=== PATIENT | female | born 2000 | race Caucasian/White ===

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

== ENCOUNTER 2019-05-06 10:33 | Inpatient (IN) | payer MEDICAID ==
[~2019-05-06] VITALS: Ht 157.5 cm; Wt 89.8 kg
[~2019-05-06 10:33] MED LIST changes: +ATOM40CA9 PO; +BACI120O TP; -CIP250 PO; +FLUO-191 PO; -GUAN1 PO; +GUAN1TAB22 PO; +OLAN10TA22 PO; -RISP2 PO; -SERT100T12 PO
[2019-05-06] MEDS ORDERED: DIVA500T52 PO (10:49)
[2019-05-06] MEDS ORDERED: MIRT-92 PO (10:49)
[2019-05-06] MEDS ORDERED: ZIPR40CA2 PO (10:49)
[2019-05-06 12:28] LABS: BASOPHILS % (AUTO) 0.6 % (0.0-2.0); HEMOGLOBIN 13.6 g/dL (12.0-16.0); LYMPHOCYTES # (AUTO) 2.1 K/uL (1.0-4.8); LYMPHOCYTES % (AUTO) 22.5 % (22.0-44.0); MEAN CORPUSCULAR HEMOGLOBIN 27.1 pg (26.0-34.0); MEAN CORPUSCULAR HGB CONC 33.3 G/dL (31.0-37.0); MEAN CORPUSCULAR VOLUME 81 fL (80-100); MONOCYTES # (AUTO) 0.5 K/uL (0.1-1.0); MONOCYTES % (AUTO) 5.8 % (2.0-9.0); NEUTROPHILS # (AUTO) 6.5 K/uL (1.8-7.7); NEUTROPHILS % (AUTO) 70.1 % (40.0-70.0); PLATELET COUNT (AUTO) 284 K/uL (150-450); RED BLOOD CELL COUNT(AUTO) 5.04 MIL/uL (4.00-5.20)
[2019-05-06 12:38] LABS: ANION GAP 9 mmol/L (8-16); CALCIUM, TOTAL 9.3 mg/dL (8.8-10.5); CARBON DIOXIDE 28 mmol/L (22-29); CHLORIDE 106 mmol/L (98-107); CREATININE 0.93 mg/dL (0.60-1.30); GLOMERULAR FILTR. RATE CALC > 60 mL/min (>60); GLUCOSE,RANDOM 82 mg/dL (70-110); POTASSIUM 4.3 mmol/L (3.5-5.1); SODIUM SERUM 143 mmol/L (136-145); UREA NITROGEN, BLOOD 8 mg/dL (7-18)
[2019-05-06 12:40] LABS: AMPHET/METH SCREEN,URINE NEGATIVE (NEGATIVE); BARBITURATE SCREEN, URINE NEGATIVE (NEGATIVE); BENZODIAZEPINES SCREEN,URINE NEGATIVE (NEGATIVE); CANNABINOID SCREEN,URINE NEGATIVE (NEGATIVE); COCAINE SCREEN,URINE NEGATIVE (NEGATIVE); METHADONE SCREEN, URINE NEGATIVE (NEGATIVE); OPIATE SCREEN,URINE NEGATIVE (NEGATIVE)
[2019-05-06 12:41] LABS: PHENCYCLIDINE SCREEN,URINE NEGATIVE (NEGATIVE)
[2019-05-06 12:44] LABS: ALANINE AMINOTRANSFERASE 19 U/L (12-78); ALBUMIN 3.9 g/dL (3.4-5.0); ALKALINE PHOSPHATASE 88 U/L (46-116); ASPARTATE AMINOTRANSFERASE 9 U/L (15-37); BILIRUBIN,TOTAL 0.2 mg/dL (0.1-1.0); TOTAL PROTEIN, SERUM 7.6 g/dL (6.4-8.2); VALPROIC ACID 49 mcg/mL (50-100)
[2019-05-06 15:56] LABS: APPEARANCE,URINE CLOUDY (CLEAR); BILIRUBIN,URINE NEGATIVE (NEGATIVE); GLUCOSE, URINE (UA) NEGATIVE (NEGATIVE); KETONES,URINE NEGATIVE (NEGATIVE); LEUKOCYTE ESTERASE ,URINE SMALL (NEGATIVE); NITRATE,URINE NEGATIVE (NEGATIVE); OCCULT BLOOD,URINE LARGE (NEGATIVE); PH,URINE 5.5 (5.0-8.0); PROTEIN,URINE TRACE (NEGATIVE); UROBILINOGEN,URINE 0.2 mg/dL (<=1.0)
[2019-05-06 16:06] LABS: BACTERIA,URINE Moderate /HPF (None Seen); RBC,URINE 0-2 /HPF (0-2); SQUAMOUS EPITHELIAL CELL,UR Moderate /LPF (None Seen)
[2019-05-06 18:43] VITALS: BP 111/70
[2019-05-06] MEDS ORDERED: LOPERAMIDE HCL 2 MG CAPSULE PO PRN (19:00)
[2019-05-06] MEDS ORDERED: MAGNESIUM HYDROXIDE SUSPENSION 30 ML UDCUP PO PRN (19:00)
[2019-05-06] MEDS ORDERED: PETROLATUM,WHITE 28 GM JELLY TP PRN (19:00)
[2019-05-06] MEDS ORDERED: GuaiFENesin/D-METHORPHAN [SUGAR-FREE] 200-20MG/10 ML SYRUP UDCUP PO PRN (19:00)
[2019-05-06] MEDS ORDERED: NICOTINE 14 MG/24 HOUR PATCH TD PRN (19:00)
[2019-05-06] MEDS ORDERED: DOCUSATE SODIUM 100 MG CAPSULE PO PRN (19:00)
[2019-05-06] MEDS ORDERED: CloNIDine HCL 0.1 MG TABLET PO PRN (19:00)
[2019-05-06] MEDS ORDERED: ONDANSETRON HCL 4 MG TABLET PO PRN (19:00)
[2019-05-06] MEDS ORDERED: ALBUTEROL SULFATE HFA 90 MCG/PUFF 8 GM INHALER IH PRN (19:00)
[2019-05-06 19:11] VITALS: BP 111/70
[2019-05-06] MEDS: LORazepam 2 MG TABLET PO PRN (20:28)
[2019-05-07 00:30] VITALS: BP 111/71
[2019-05-07] MEDS: LORazepam 2 MG TABLET PO PRN ×2 (00:31→21:34)
[2019-05-07 09:16] VITALS: BP 118/73
[2019-05-07] MEDS: GuanFACINE HCL 1 MG TABLET PO SCH (09:33)
[2019-05-07] MEDS: GABAPENTIN 300 MG CAPSULE PO SCH ×2 (12:04→17:02)
[2019-05-07 12:49] VITALS: BP 124/84
[2019-05-07] MEDS: IBUPROFEN 400 MG TABLET PO PRN (12:49)
[2019-05-07 17:00] VITALS: BP 100/55
[2019-05-07] MEDS: ZIPRASIDONE HCL 40 MG CAPSULE PO SCH (17:02)
[2019-05-07] MEDS: HALOPERIDOL 5 MG TABLET PO PRN (21:34)
[2019-05-08] MEDS: ZIPRASIDONE HCL 40 MG CAPSULE PO SCH ×2 (07:08→16:34)
[2019-05-08 08:41] VITALS: BP 119/67
[2019-05-08 09:06] LABS: FREE T4 (FREE THYROXINE) 0.74 ng/dL (0.76-1.46); THYROID STIMULATING HORMONE 2.49 uIU/mL (0.36-3.74)
[2019-05-08] MEDS: GABAPENTIN 300 MG CAPSULE PO SCH ×2 (09:23→16:34)
[2019-05-08] MEDS: GuanFACINE HCL 1 MG TABLET PO SCH (09:23)
[2019-05-08 16:49] VITALS: BP 108/69
[2019-05-08] MEDS: ZOLPIDEM TARTRATE 10 MG TABLET PO PRN (22:09)
[2019-05-09 01:13] VITALS: BP 110/82
[2019-05-09] MEDS: ACETAMINOPHEN 325 MG TABLET PO PRN (04:16)
[2019-05-09] MEDS: IBUPROFEN 400 MG TABLET PO PRN ×2 (05:13→19:01)
[2019-05-09] MEDS: ZIPRASIDONE HCL 40 MG CAPSULE PO SCH ×2 (06:31→17:22)
[2019-05-09 09:18] VITALS: BP 103/63
[2019-05-09] MEDS: GABAPENTIN 300 MG CAPSULE PO SCH ×2 (10:26→17:22)
[2019-05-09] MEDS: GuanFACINE HCL 1 MG TABLET PO SCH (10:26)
[2019-05-09 17:34] VITALS: BP 110/73
[2019-05-09 18:50] VITALS: BP 110/73
[2019-05-10] MEDS: ZIPRASIDONE HCL 40 MG CAPSULE PO SCH ×2 (06:44→16:22)
[2019-05-10 09:02] VITALS: BP 115/75
[2019-05-10] MEDS: GABAPENTIN 300 MG CAPSULE PO SCH ×2 (09:03→16:22)
[2019-05-10] MEDS: GuanFACINE HCL 1 MG TABLET PO SCH (09:03)
[2019-05-10] MEDS: MAG HYDROX/AL HYDROX/SIMETH ES 30 ML SUSPENSION UDCUP PO PRN (11:07)
[2019-05-10] MEDS: LORazepam 2 MG TABLET PO PRN (11:33)
[2019-05-10 16:00] VITALS: BP 95/79
[2019-05-10] MEDS: ZOLPIDEM TARTRATE 10 MG TABLET PO PRN (21:23)
[2019-05-11 00:21] VITALS: BP 120/89
[2019-05-11 04:48] LABS: APPEARANCE,URINE CLEAR (CLEAR); BILIRUBIN,URINE NEGATIVE (NEGATIVE); GLUCOSE, URINE (UA) NEGATIVE (NEGATIVE); KETONES,URINE NEGATIVE (NEGATIVE); LEUKOCYTE ESTERASE ,URINE NEGATIVE (NEGATIVE); NITRATE,URINE NEGATIVE (NEGATIVE); OCCULT BLOOD,URINE NEGATIVE (NEGATIVE); PH,URINE 6.5 (5.0-8.0); PROTEIN,URINE NEGATIVE (NEGATIVE); UROBILINOGEN,URINE 0.2 mg/dL (<=1.0)
[2019-05-11 05:03] LABS: AMPHET/METH SCREEN,URINE NEGATIVE (NEGATIVE); BARBITURATE SCREEN, URINE NEGATIVE (NEGATIVE); BENZODIAZEPINES SCREEN,URINE NEGATIVE (NEGATIVE); CANNABINOID SCREEN,URINE NEGATIVE (NEGATIVE); COCAINE SCREEN,URINE NEGATIVE (NEGATIVE); METHADONE SCREEN, URINE NEGATIVE (NEGATIVE); OPIATE SCREEN,URINE NEGATIVE (NEGATIVE)
[2019-05-11 05:08] LABS: PHENCYCLIDINE SCREEN,URINE NEGATIVE (NEGATIVE)
[2019-05-11] MEDS: ZIPRASIDONE HCL 40 MG CAPSULE PO SCH ×2 (06:52→16:34)
[2019-05-11 08:55] VITALS: BP 100/71
[2019-05-11] MEDS: GABAPENTIN 300 MG CAPSULE PO SCH ×2 (09:00→16:35)
[2019-05-11] MEDS: GuanFACINE HCL 1 MG TABLET PO SCH (09:00)
[2019-05-11 12:28] VITALS: BP 112/72
[2019-05-11] MEDS: IBUPROFEN 400 MG TABLET PO PRN (12:28)
[2019-05-11 16:44] VITALS: BP 114/70
[2019-05-11] MEDS: HALOPERIDOL 5 MG TABLET PO PRN (23:42)
[2019-05-12] MEDS: ZOLPIDEM TARTRATE 10 MG TABLET PO PRN ×2 (00:05→22:14)
[2019-05-12 06:01] VITALS: BP 102/65
[2019-05-12] MEDS: IBUPROFEN 400 MG TABLET PO PRN (06:34)
[2019-05-12] MEDS: ZIPRASIDONE HCL 40 MG CAPSULE PO SCH ×2 (06:50→17:30)
[2019-05-12 08:48] VITALS: BP 117/80
[2019-05-12] MEDS: GuanFACINE HCL 1 MG TABLET PO SCH (08:56)
[2019-05-12] MEDS: GABAPENTIN 300 MG CAPSULE PO SCH ×2 (08:56→17:30)
[2019-05-12 16:55] VITALS: BP 104/58
[2019-05-12 19:09] VITALS: BP 104/58
[2019-05-12] MEDS: ACETAMINOPHEN 325 MG TABLET PO PRN (19:09)
[2019-05-13] MEDS: ZIPRASIDONE HCL 40 MG CAPSULE PO SCH ×2 (06:44→17:37)
[2019-05-13] MEDS: GuanFACINE HCL 1 MG TABLET PO SCH (08:32)
[2019-05-13] MEDS: GABAPENTIN 300 MG CAPSULE PO SCH ×2 (08:32→16:47)
[2019-05-13 08:44] VITALS: BP 124/86
[2019-05-13] MEDS: OMEGA-3/DHA/EPA/FISH OIL 1,000 MG CAPSULE PO SCH (10:33)
[2019-05-13 16:30] VITALS: BP 104/60
[2019-05-13] MEDS: IBUPROFEN 400 MG TABLET PO PRN (16:48)
[2019-05-13 22:30] VITALS: BP 111/69
[2019-05-13] MEDS: ACETAMINOPHEN 325 MG TABLET PO PRN (22:30)
[2019-05-14 00:30] VITALS: BP 117/73
[2019-05-14] MEDS: ZIPRASIDONE HCL 40 MG CAPSULE PO SCH ×2 (06:43→16:15)
[2019-05-14 09:40] VITALS: BP 124/77
[2019-05-14] MEDS: GuanFACINE HCL 1 MG TABLET PO SCH (10:25)
[2019-05-14] MEDS: OMEGA-3/DHA/EPA/FISH OIL 1,000 MG CAPSULE PO SCH (10:28)
[2019-05-14] MEDS: GABAPENTIN 300 MG CAPSULE PO SCH ×2 (10:29→16:15)
[2019-05-14] MEDS: MAG HYDROX/AL HYDROX/SIMETH ES 30 ML SUSPENSION UDCUP PO PRN (15:34)
[2019-05-14 17:32] VITALS: BP 112/59
[2019-05-15] MEDS: MAG HYDROX/AL HYDROX/SIMETH ES 30 ML SUSPENSION UDCUP PO PRN (03:00)
[2019-05-15] MEDS: ZIPRASIDONE HCL 40 MG CAPSULE PO SCH ×2 (06:40→17:37)
[2019-05-15 08:30] VITALS: BP 109/59
[2019-05-15] MEDS: OMEGA-3/DHA/EPA/FISH OIL 1,000 MG CAPSULE PO SCH (08:41)
[2019-05-15] MEDS: GABAPENTIN 300 MG CAPSULE PO SCH ×2 (08:42→17:37)
[2019-05-15] MEDS: GuanFACINE HCL 1 MG TABLET PO SCH (08:43)
[2019-05-15] MEDS: HALOPERIDOL 5 MG TABLET PO PRN (12:40)
[2019-05-15] MEDS: LORazepam 2 MG TABLET PO PRN (12:40)
[2019-05-15 16:00] VITALS: BP 91/60
[2019-05-16 00:19] VITALS: BP 108/66
[2019-05-16] MEDS: ZOLPIDEM TARTRATE 10 MG TABLET PO PRN (00:21)
[2019-05-16] MEDS: ZIPRASIDONE HCL 40 MG CAPSULE PO SCH ×2 (07:02→17:34)
[2019-05-16] MEDS: GuanFACINE HCL 1 MG TABLET PO SCH (08:30)
[2019-05-16] MEDS: OMEGA-3/DHA/EPA/FISH OIL 1,000 MG CAPSULE PO SCH (08:30)
[2019-05-16] MEDS: GABAPENTIN 300 MG CAPSULE PO SCH ×2 (08:30→17:04)
[2019-05-16 10:35] VITALS: BP 118/65
[2019-05-16 17:23] VITALS: BP 82/63
[2019-05-16 18:27] VITALS: BP 97/68
[2019-05-16] MEDS: ACETAMINOPHEN 325 MG TABLET PO PRN (18:27)
[2019-05-17 00:02] VITALS: BP 112/66
[2019-05-17] MEDS: LORazepam 2 MG TABLET PO PRN ×2 (00:05→21:59)
[2019-05-17] MEDS: ZIPRASIDONE HCL 40 MG CAPSULE PO SCH ×2 (06:48→16:34)
[2019-05-17] MEDS: OMEGA-3/DHA/EPA/FISH OIL 1,000 MG CAPSULE PO SCH (10:03)
[2019-05-17] MEDS: GuanFACINE HCL 1 MG TABLET PO SCH (10:04)
[2019-05-17] MEDS: GABAPENTIN 300 MG CAPSULE PO SCH ×2 (10:04→16:34)
[2019-05-17 12:50] VITALS: BP 108/71
[2019-05-17 17:29] VITALS: BP 103/68
[2019-05-18 00:24] VITALS: BP 101/69
[2019-05-18] MEDS: IBUPROFEN 400 MG TABLET PO PRN (01:00)
[2019-05-18] MEDS: ZOLPIDEM TARTRATE 10 MG TABLET PO PRN (02:09)
[2019-05-18] MEDS: ZIPRASIDONE HCL 40 MG CAPSULE PO SCH ×2 (07:02→16:29)
[2019-05-18 08:00] VITALS: BP 101/64
[2019-05-18] MEDS: OMEGA-3/DHA/EPA/FISH OIL 1,000 MG CAPSULE PO SCH (09:04)
[2019-05-18] MEDS: GuanFACINE HCL 1 MG TABLET PO SCH (09:04)
[2019-05-18] MEDS: GABAPENTIN 300 MG CAPSULE PO SCH ×2 (09:04→16:29)
[2019-05-18] MEDS: LORazepam 2 MG TABLET PO PRN (17:50)
[2019-05-18 19:48] VITALS: BP 107/66
[2019-05-19] MEDS: LORazepam 2 MG TABLET PO PRN ×2 (01:31→18:02)
[2019-05-19] MEDS: ZOLPIDEM TARTRATE 10 MG TABLET PO PRN (01:31)
[2019-05-19 02:37] VITALS: BP 119/73
[2019-05-19] MEDS: ZIPRASIDONE HCL 40 MG CAPSULE PO SCH ×2 (06:56→16:48)
[2019-05-19 09:14] VITALS: BP 148/80
[2019-05-19] MEDS: GuanFACINE HCL 1 MG TABLET PO SCH (10:36)
[2019-05-19] MEDS: OMEGA-3/DHA/EPA/FISH OIL 1,000 MG CAPSULE PO SCH (10:37)
[2019-05-19] MEDS: GABAPENTIN 300 MG CAPSULE PO SCH ×2 (10:37→16:48)
[2019-05-19] MEDS: ACETAMINOPHEN 325 MG TABLET PO PRN ×2 (14:46→18:45)
[2019-05-19 16:00] VITALS: BP 107/71
[2019-05-19 18:39] VITALS: BP 161/80
[2019-05-20 04:19] VITALS: BP 112/78
[2019-05-20] MEDS: ZIPRASIDONE HCL 40 MG CAPSULE PO SCH ×2 (06:50→17:31)
[2019-05-20 08:00] VITALS: BP 112/69
[2019-05-20] MEDS: GuanFACINE HCL 1 MG TABLET PO SCH (08:42)
[2019-05-20] MEDS: GABAPENTIN 300 MG CAPSULE PO SCH ×2 (08:43→16:27)
[2019-05-20] MEDS: OMEGA-3/DHA/EPA/FISH OIL 1,000 MG CAPSULE PO SCH (08:43)
[2019-05-20 08:50] VITALS: BP 112/69
[2019-05-20 16:58] VITALS: BP 125/78
[2019-05-21 00:29] VITALS: BP 96/57
[2019-05-21] MEDS: ACETAMINOPHEN 325 MG TABLET PO PRN ×2 (00:29→16:57)
[2019-05-21 01:00] VITALS: BP 102/68
[2019-05-21] MEDS: LORazepam 2 MG TABLET PO PRN (01:02)
[2019-05-21] MEDS: ZIPRASIDONE HCL 40 MG CAPSULE PO SCH ×2 (06:26→16:56)
[2019-05-21] MEDS: GABAPENTIN 300 MG CAPSULE PO SCH ×2 (08:37→16:56)
[2019-05-21] MEDS: OMEGA-3/DHA/EPA/FISH OIL 1,000 MG CAPSULE PO SCH (08:37)
[2019-05-21] MEDS: GuanFACINE HCL 1 MG TABLET PO SCH (08:37)
[2019-05-21 08:46] VITALS: BP 105/55
[2019-05-21 17:05] VITALS: BP 90/60
[2019-05-22 02:16] VITALS: BP 124/69
[2019-05-22] MEDS: ACETAMINOPHEN 325 MG TABLET PO PRN ×2 (05:27→17:11)
[2019-05-22] MEDS: ZIPRASIDONE HCL 40 MG CAPSULE PO SCH ×2 (06:52→17:11)
[2019-05-22] MEDS: GABAPENTIN 300 MG CAPSULE PO SCH ×2 (08:13→17:11)
[2019-05-22] MEDS: OMEGA-3/DHA/EPA/FISH OIL 1,000 MG CAPSULE PO SCH (08:13)
[2019-05-22] MEDS: GuanFACINE HCL 1 MG TABLET PO SCH (08:13)
[2019-05-22 09:44] VITALS: BP 117/69
[2019-05-22 18:22] VITALS: BP 110/72
[2019-05-23 02:43] VITALS: BP 99/70
[2019-05-23] MEDS: ZOLPIDEM TARTRATE 10 MG TABLET PO PRN (02:49)
[2019-05-23] MEDS: ZIPRASIDONE HCL 40 MG CAPSULE PO SCH ×2 (07:07→17:38)
[2019-05-23] MEDS: GABAPENTIN 300 MG CAPSULE PO SCH ×2 (08:11→17:38)
[2019-05-23] MEDS: OMEGA-3/DHA/EPA/FISH OIL 1,000 MG CAPSULE PO SCH (08:11)
[2019-05-23] MEDS: GuanFACINE HCL 1 MG TABLET PO SCH (08:11)
[2019-05-23 10:08] VITALS: BP 143/72
[2019-05-23] MEDS: ACETAMINOPHEN 325 MG TABLET PO PRN (14:51)
[2019-05-23 16:21] VITALS: BP 99/67
[2019-05-24 04:44] VITALS: BP 110/90
[2019-05-24] MEDS: ACETAMINOPHEN 325 MG TABLET PO PRN (05:17)
[2019-05-24] MEDS: ZIPRASIDONE HCL 40 MG CAPSULE PO SCH ×2 (06:48→16:31)
[2019-05-24] MEDS: GABAPENTIN 300 MG CAPSULE PO SCH ×2 (08:37→16:31)
[2019-05-24] MEDS: OMEGA-3/DHA/EPA/FISH OIL 1,000 MG CAPSULE PO SCH (08:37)
[2019-05-24] MEDS: GuanFACINE HCL 1 MG TABLET PO SCH (08:38)
[2019-05-24 09:01] VITALS: BP 125/81
[2019-05-24] MEDS: IBUPROFEN 400 MG TABLET PO PRN (09:36)
[2019-05-24] MEDS: BuPROPion HCL XL 150 MG ER TABLET PO SCH (10:45)
[2019-05-24 16:47] VITALS: BP 110/74
[2019-05-25] MEDS: ZOLPIDEM TARTRATE 10 MG TABLET PO PRN (02:10)
[2019-05-25 04:02] VITALS: BP 121/78
[2019-05-25] MEDS: ZIPRASIDONE HCL 40 MG CAPSULE PO SCH ×2 (06:48→16:31)
[2019-05-25] MEDS: GuanFACINE HCL 1 MG TABLET PO SCH (08:22)
[2019-05-25] MEDS: GABAPENTIN 300 MG CAPSULE PO SCH ×2 (08:22→16:31)
[2019-05-25] MEDS: BuPROPion HCL XL 150 MG ER TABLET PO SCH (08:22)
[2019-05-25] MEDS: OMEGA-3/DHA/EPA/FISH OIL 1,000 MG CAPSULE PO SCH (08:22)
[2019-05-25 08:25] VITALS: BP 111/66
[2019-05-25 16:17] VITALS: BP 101/74
[2019-05-25] MEDS: HALOPERIDOL 5 MG TABLET PO PRN (22:32)
[2019-05-26] MEDS: ZIPRASIDONE HCL 40 MG CAPSULE PO SCH ×2 (06:47→16:32)
[2019-05-26] MEDS: ACETAMINOPHEN 325 MG TABLET PO PRN ×2 (07:11→17:24)
[2019-05-26] MEDS: OMEGA-3/DHA/EPA/FISH OIL 1,000 MG CAPSULE PO SCH (08:28)
[2019-05-26] MEDS: GABAPENTIN 300 MG CAPSULE PO SCH ×2 (08:28→16:32)
[2019-05-26] MEDS: GuanFACINE HCL 1 MG TABLET PO SCH (08:29)
[2019-05-26] MEDS: BuPROPion HCL XL 150 MG ER TABLET PO SCH (08:29)
[2019-05-26] MEDS: HALOPERIDOL 5 MG TABLET PO PRN (08:39)
[2019-05-26 14:04] VITALS: BP 126/86
[2019-05-26] MEDS: IBUPROFEN 400 MG TABLET PO PRN (14:04)
[2019-05-26 17:11] VITALS: BP 92/62
[2019-05-26 17:20] VITALS: BP 110/65
[2019-05-27 02:23] VITALS: BP 122/66
[2019-05-27] MEDS: ACETAMINOPHEN 325 MG TABLET PO PRN (03:14)
[2019-05-27] MEDS: ZIPRASIDONE HCL 40 MG CAPSULE PO SCH ×2 (06:45→16:41)
[2019-05-27] MEDS: OMEGA-3/DHA/EPA/FISH OIL 1,000 MG CAPSULE PO SCH (08:40)
[2019-05-27] MEDS: BuPROPion HCL XL 150 MG ER TABLET PO SCH (08:40)
[2019-05-27] MEDS: GABAPENTIN 300 MG CAPSULE PO SCH ×2 (08:40→16:41)
[2019-05-27] MEDS: GuanFACINE HCL 1 MG TABLET PO SCH (08:42)
[2019-05-27 09:11] VITALS: BP 101/66
[2019-05-27] MEDS: IBUPROFEN 400 MG TABLET PO PRN ×2 (09:58→18:06)
[2019-05-27] MEDS: MAG HYDROX/AL HYDROX/SIMETH ES 30 ML SUSPENSION UDCUP PO PRN (18:06)
[2019-05-27 18:40] VITALS: BP 120/80
[2019-05-27] MEDS: HALOPERIDOL 5 MG TABLET PO PRN (18:45)
[2019-05-28 05:15] VITALS: BP 98/67
[2019-05-28] MEDS: ACETAMINOPHEN 325 MG TABLET PO PRN ×2 (05:17→11:54)
[2019-05-28] MEDS: ZIPRASIDONE HCL 40 MG CAPSULE PO SCH (06:42)
[2019-05-28 08:38] VITALS: BP 105/72
[2019-05-28] MEDS: GABAPENTIN 300 MG CAPSULE PO SCH (08:51)
[2019-05-28] MEDS: BuPROPion HCL XL 150 MG ER TABLET PO SCH (08:51)
[2019-05-28] MEDS: OMEGA-3/DHA/EPA/FISH OIL 1,000 MG CAPSULE PO SCH (08:51)
[2019-05-28] MEDS: GuanFACINE HCL 1 MG TABLET PO SCH (08:51)
[2019-05-28] MEDS ORDERED: OMEG-135 PO (10:58)
[2019-05-28] MEDS ORDERED: BUPR-93 PO (11:06)
[2019-05-28] MEDS ORDERED: GABA-531 PO (11:07)
== END 2019-05-28 15:00 | disposition home or self-care (01) | DRG 885 ==
LOC: EMS 10:33 → 3EI 16:52
PROVIDERS: ADMIT Psychiatry & Neurology Psychiatry; ATTEND Psychiatry & Neurology Psychiatry
DX: F25.0 Schizoaffective disorder, bipolar type (principal); N39.0 Urinary tract infection, site not specified; F12.10 Cannabis abuse, uncomplicated; F43.10 Post-traumatic stress disorder, unspecified; K59.00 Constipation, unspecified; F32.9 Major depressive disorder, single episode, unspecified; I95.9 Hypotension, unspecified; F90.9 Attention-deficit hyperactivity disorder, unspecified type; Z59.0 Homelessness; Z79.899 Other long term (current) drug therapy
CPT/HCPCS: 80307; 84439; 84443; 87081; 87086; G0480